=== PATIENT | female | born 1995 | race Caucasian/White ===

== ENCOUNTER → 2016-12-24 | Outpatient (CLI) | payer OTHER ==
[~2016-12-24] MED LIST: BUPRTAB51 PO; ETONMIS VAGRING; QUET1TAB30 PO; [UNRECOGNIZED DRUG - CODE] PO
--- NOTE | 2016-12-24 12:05 | DIAGNOSTIC IMAGING REPORT ---
PELVIC COMPLETE NON OB CLINICAL HISTORY: 21 years-old Female presenting with IUD SURVEILLANCE. TECHNIQUE: Real-time grayscale and color and spectral Doppler ultrasound imaging of the pelvis was performed first using a transabdominal probe and subsequently transvaginal for better characterization. COMPARISON: 03/13/2015. FINDINGS: Uterus: Intrauterine device in place, which is in the lower uterine segment, potentially extending into the cervix. The intrauterine device may take transit through the anterior wall myometrium oriented longitudinally to the endometrial canal. The endometrial cavity is seen separate from the intrauterine device. Anteverted. The uterus measures 7.2 x 3.6 x 4.4 cm. Endometrial stripe measures 7 mm in thickness. Endometrium normal-appearing. Cervix normal. Right adnexa: Right ovary contains numerous follicles. Right ovary measures 4.0 x 2.2 x 3.3 cm. Normal color Doppler flow and arterial and venous waveforms within the ovarian parenchyma. Left adnexa: Left ovary also contains numerous follicles. Left ovary measures 3.5 x 1.8 x 2.5 cm. Normal color Doppler flow and arterial and venous waveforms within the ovarian parenchyma. Other: Trace free fluid, likely physiologic. IMPRESSION: The intrauterine device appears to transit through the anterior wall myometrium oriented longitudinally to the endometrial canal. Endometrial cavity is seen separate from the IUD. This could raises concern for malpositioning. Electronically signed by: Riley Kyle M.D. 12/24/2016 12:04 PM Dictated Date/Time: 12/24/2016 11:59 AM
== END | disposition home or self-care (01) ==
LOC: C.ULTR 11:03
PROVIDERS: ATTEND Physician Assistant Medical
DX: Z30.431 Encounter for routine checking of intrauterine contraceptive device (principal)